=== PATIENT | female | born 2000 | race Caucasian/White ===

== ENCOUNTER 2022-01-20 23:44 | Inpatient (IN) ==
[2022-01-21] MEDS ORDERED: OXYTOCIN 30 UNITS/500 ML BAG IV PRN ×3 (02:38→11:53)
[2022-01-21] MEDS ORDERED: PROMETHAZINE HCL INJ 25 MG/ML 1 ML VIAL IM STA (02:38)
[2022-01-21] MEDS ORDERED: MoRPHine SULFATE 10 MG/ML CARP/VIAL IM PRN (02:46)
--- NOTE | 2022-01-21 02:51 | History & Physical Report ---
Date of Service January 21, 2022 Assessment & Plan (1) Supervision of normal intrauterine in primigravida: Plan: Admit to L&D for labor. I suspect patient is in early labor stages, given the noted thinning of cervix during her observation so far. However, her pain is so severe that she is in need of pain relief. I have offered her morphine/phenergan for therapeutic rest, as well as moving forward with epidural. She was so painful that she was unable to really make a decision about this during a contraction - however, she was then able to get up and ambulate down the hallway to a new room for admission. Abdomen is soft, FHT is reassuring - so I do not think this pain is related to a diagnosis of abruption - I think she is more likely feeling extreme pain with contractions and the bloody show is related to cervical change. She does not have the significant pain in between contractions. History of Present Illness Chief Complaint: contractions Primary Care Provider: NO PCP 21yo @ 40 2, presented with contractions every few minutes. +bloody show. No leaking fluid. + movement. Severe discomfort with contractions. Allergies Allergy/AdvReac Type Severity Reaction Status Date / Time amoxicillin Allergy hx from Verified 01/19/22 09:35 mother Home Medications Medication Instructions Recorded Confirmed Type prenat.vits,emma,psa-fdhf-ycqpy 1 tab PO DAILY 06/08/21 01/19/22 History Patient History Surgical History S/P wisdom tooth extraction Family History (Updated 06/08/21 @ 12:54 by Luci Hickman) Mother Hypothyroidism Family/Other Hypothyroidism Social History (Updated 06/08/21 @ 12:55 by Luci Hickman) Smoking Status: Never smoker Second Hand Exposure: No; Do You Dip or Chew Tobacco: No; Tobacco Cessation Education Requested by Patient: No Hx Alcohol Use: No Hx Substance Use: No Preferred Language: Setswana Communication Ability: Effective Chainstitch Hemmer Required: No Beliefs That Will Affect Care: None marital status: Single marital status details: Darin (22) [phone] Current Living Situation: Significant Other Current Living Situation Comment: FOB and two dogs current occupational status: employed 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 (Was 50/-3 on arrival) Constitutional: WD/WN, vitals as above Respiratory: normal respiratory effort, lungs clear to auscultation no respiratory distress Cardiovascular: Rate/Rhythm: regular rate and regular rhythm Gastrointestinal (Abdomen): Inspection/Auscultation: abdomen normal to inspection Percussion/Palpation: abdomen soft; abdomen nontender Gravid. No s/s chorio or abruption. Skin: no rashes, warm and dry Psychiatric: A+Ox3, euthymic affect Results & Data ([facility]) Vital Signs (Past 12 Hours) Vital Signs Temp Pulse Resp BP 01/21/22 00:11 36.6 C 18 01/20/22 23:59 78 115/76 Coding Level of Care Code None Diagnoses Supervision of normal intrauterine in primigravida Z34.00
[2022-01-21] MEDS: LACTATED RINGER'S 1,000 ML IV PRN ×2 (03:04→04:24)
[2022-01-21 03:25] LABS: Hematocrit (blood only) 35.5 % (37-47); Hemoglobin 11.7 g/dL (12.0-16.0); Mean Corpuscular Hemoglobin 30.5 pg (25-34); Mean Corpuscular Volume 92.4 fL (80-100); Mean Platelet Volume 10.6 fL (7.4-10.4); Platelet Count 192 K/uL (130-400); RDW Standard Deviation 43.8 fL (36.4-46.3); Red Blood Count 3.84 M/uL (4.2-5.4)
[2022-01-21] MEDS ORDERED: ePHEDrine sulfate 50 MG/ML AMP ONE (04:03)
[2022-01-21] MEDS ORDERED: fentaNYL citrate 100 MCG/2 ML VIAL ONE (04:03)
[2022-01-21] MEDS ORDERED: SODIUM CHLORIDE 0.9% INJ 10 ML VIAL ONE (04:03)
[2022-01-21] MEDS ORDERED: BUPIVACAINE 0.25% 30 ML VIAL ONE (04:03)
[2022-01-21] MEDS ORDERED: fentaNYL 2MCG/ML ROPIVACAINE 1.25MG/ML 100 ML BAG EPI ONE (04:04)
--- NOTE | 2022-01-21 04:11 | Anesthesiology Consultation ---
Date of Service January 21, 2022 Assessment & Plan (1) Encounter for pre-operative examination: Chart Review Chart Review: Patient NOT seen in Pre Admission Testing and Acceptable Risk for Labor Epidural History Height/Weight Height: 5 ft 6 in Weight: 68.039 kg Allergies Allergy/AdvReac Type Severity Reaction Status Date / Time amoxicillin Allergy hx from Verified 01/19/22 09:35 mother Medications Home Medications Medication Instructions Recorded Confirmed Last Taken prenat.vits,emma,ovp-fqnc-ybtfg 1 tab PO DAILY 06/08/21 01/21/22 01/20/22 08:00 Active Medications Generic Name Dose Route Start Last Admin Trade Name Freq PRN Reason Stop Dose Admin Lactated Ringer's 1,000 mls @ 125 mls/hr 01/21/22 02:38 01/21/22 03:04 Lr IV 01/23/22 02:37 999 mls/hr .Q8H PRN Administration L&D Protocol Protocol Morphine Sulfate 5 mg 01/21/22 02:46 01/21/22 02:54 Morphine Sulfate 10 Mg/Ml Carp/Vial IM 02/04/22 02:45 5 mg Q4H PRN Administration Pain Past Family History Family History Mother Hypothyroidism Family/Other Hypothyroidism Past Surgical History Surgical History S/P wisdom tooth extraction Social History Smoking Status: Never smoker Do You Dip or Chew Tobacco: No Hx Alcohol Use: No Hx Substance Use: No substance use type: does not use Physical Exam Vital Signs Last Vital Signs Temp 36.6 C 01/21/22 00:11 Pulse 78 01/20/22 23:59 Resp 18 01/21/22 00:11 BP 115/76 01/20/22 23:59 Testing Laboratory Results 01/21/22 03:15
[2022-01-21] MEDS ORDERED: ePHEDrine sulfate 50 MG/ML AMP IV PRN (05:16)
[2022-01-21] MEDS ORDERED: NALBUPHINE HCL INJ 10 MG/ML AMP IV PRN (05:16)
[2022-01-21] MEDS ORDERED: diphenhydrAMINE 50 MG/ML VIAL IV PRN (05:16)
[2022-01-21] MEDS ORDERED: fentaNYL 2MCG/ML ROPIVACAINE 1.25MG/ML 100 ML BAG EPI PRN (05:16)
[2022-01-21] MEDS ORDERED: ONDANSETRON INJ 2 MG/ML 2 ML VIAL IV PRN (05:16)
[2022-01-21] MEDS ORDERED: NALOXONE HCL 1 MG in SODIUM CHLORIDE 0.9% 1000ML 1,000 ML IV PRN (05:16)
[2022-01-21] MEDS ORDERED: NALOXONE HCL 0.4 MG/1 ML VIAL/CARP IV PRN (05:16)
--- NOTE | 2022-01-21 11:13 | Labor Progress Brief Note ---
Date of Service January 21, 2022 Subjective Has labored down for an hour. Feeling rectal pressure. Assessment & Plan (1) Normal labor: Plan: Will begin pushing. fetus category one. Anticipate . Admission and Anticipated Discharge Date Admission Date: January 21, 2022 Physical Exam Physical Exam: cx--c/c/+1-2 toco--q2-3 efm--145 with mod variability, accels present, no decels Results & Data ([facility]) Vital Signs (Past 12 Hours) Vital Signs Temp Pulse Resp BP Pulse Ox 01/21/22 11:08 37.4 C 20 01/21/22 11:05 82 97 01/21/22 11:00 79 97 01/21/22 10:55 81 97 01/21/22 10:50 82 98 01/21/22 10:45 96 H 117/71 98 01/21/22 10:40 80 97 01/21/22 10:35 79 97 01/21/22 10:30 80 18 97 01/21/22 10:25 80 97 01/21/22 10:20 80 97 01/21/22 10:15 102 H 162/95 H 96 01/21/22 10:10 112 H 96 01/21/22 10:05 98 H 97 01/21/22 10:00 99 H 18 96 01/21/22 09:55 99 H 97 01/21/22 09:50 93 H 96 01/21/22 09:45 119 H 96 01/21/22 09:40 78 96 01/21/22 09:35 82 96 01/21/22 09:30 72 18 96 01/21/22 09:25 74 96 01/21/22 09:20 72 96 01/21/22 09:15 80 92/55 L 96 01/21/22 09:10 70 96 01/21/22 09:05 69 96 01/21/22 09:00 65 18 96 01/21/22 08:55 74 96 01/21/22 08:50 76 96 01/21/22 08:46 87 96/54 L 01/21/22 08:45 82 96 01/21/22 08:40 78 95 01/21/22 08:35 83 96 01/21/22 08:30 93 H 18 96 01/21/22 08:25 83 96 01/21/22 08:20 86 96 01/21/22 08:16 78 118/68 01/21/22 08:15 76 96 01/21/22 08:10 91 H 96 01/21/22 08:05 88 96 01/21/22 08:00 90 18 96 01/21/22 07:55 70 96 01/21/22 07:50 72 95 01/21/22 07:46 72 116/68 01/21/22 07:45 71 96 01/21/22 07:40 81 96 01/21/22 07:35 102 H 97 01/21/22 07:30 81 20 97 01/21/22 07:25 77 99 01/21/22 07:20 78 96 01/21/22 07:15 74 96 01/21/22 07:10 37 C 76 18 96 01/21/22 07:05 76 96 01/21/22 07:00 67 18 109/58 L 95 01/21/22 06:55 68 95 01/21/22 06:50 81 96 01/21/22 06:45 65 95 01/21/22 06:44 65 105/56 L 01/21/22 06:40 66 95 01/21/22 06:35 67 95 01/21/22 06:30 64 104/59 L 95 01/21/22 06:25 65 96 01/21/22 06:20 65 96 01/21/22 06:16 64 111/62 01/21/22 06:15 65 96 01/21/22 06:10 67 96 01/21/22 06:05 67 96 01/21/22 06:00 36.8 C 76 20 110/73 96 01/21/22 05:55 77 96 01/21/22 05:50 84 97 01/21/22 05:45 70 113/61 96 01/21/22 05:40 71 96 01/21/22 05:35 70 96 01/21/22 05:30 69 112/57 L 97 01/21/22 05:25 76 97 01/21/22 05:20 80 97 01/21/22 05:15 109 H 97 01/21/22 05:10 81 111/63 98 01/21/22 05:08 77 113/58 L 01/21/22 05:07 67 98/56 L 01/21/22 05:05 69 108/57 L 99 01/21/22 05:03 72 110/55 L 01/21/22 05:01 68 109/55 L 01/21/22 05:00 70 100 01/21/22 04:59 76 117/60 91 01/21/22 04:57 82 106/55 L 01/21/22 04:55 72 100 01/21/22 04:54 86 106/60 01/21/22 04:53 72 100/51 L 01/21/22 04:51 92 H 110/52 L 90 01/21/22 04:50 91 H 100 01/21/22 04:49 84 119/58 L 01/21/22 04:46 100 H 119/69 01/21/22 04:45 92 H 100 01/21/22 04:44 77 116/72 01/21/22 04:42 97 H 90 01/21/22 04:40 84 99 01/21/22 04:35 86 100 01/21/22 04:30 91 H 75 L 01/21/22 04:27 91 H 92 01/21/22 04:25 79 100 01/21/22 04:20 102 H 100 01/21/22 04:18 88 127/76 01/21/22 04:15 107 H 100 01/21/22 00:11 36.6 C 18 01/20/22 23:59 78 115/76 Coding Level of Care Code None Diagnoses Normal labor O80; Z37.9
[2022-01-21] MEDS ORDERED: bisacodyL 10 MG SUPP PR PRN (11:53)
[2022-01-21] MEDS ORDERED: ACETAMINOPHEN 325 MG TAB PO PRN (11:53)
[2022-01-21] MEDS ORDERED: oxyCODONE/ACETAMINOPHEN 5mg/325mg TAB PO PRN (11:53)
[2022-01-21] MEDS ORDERED: HYDROCORTISONE ACETATE 25 MG SUPP PR PRN (11:53)
[2022-01-21] MEDS ORDERED: DIPHTHERIA/TETANUS/PERTUSSIS 0.5 ML SYR/VIAL IM ONE (11:53)
[2022-01-21] MEDS ORDERED: BENZOCAINE 20% AER SPR 82.5 GM CAN EXT PRN (11:53)
--- NOTE | 2022-01-21 11:59 | Delivery Summary ---
Vaginal Delivery Summary Date of Service January 21, 2022 Vaginal Delivery Summary and 1st Degree LAC Pre-operative Diagnosis: at 40 weeks normal labor Post-operative Diagnosis: same Procedure: epidural first degree and bilateral labial lacerations EBL: 350cc Anesthesia: epidural Procedure: Patient was admitted in early active labor. She was given an epidural and progressed to c/c/+1-2 after an hour of laboring down. The patient pushed for 15 min to deliver a viable female infant in kaila position. The nose and mouth were bulb suctioned on the perineum and the rest of the infant was then delivered without difficulty. There was a tight nuchal cord and an nuchal arm at delivery. The baby was vigorous. The nose and mouth were again bulb suctioned and the infant was placed in the maternal abdomen for drying and attention. Cord was clamped and cut at one minute of life. Cord blood and segment obtained. Placenta delivered spontaneous, intact with a three vessel cord. Cervix/sulci/rectum were intact. A first degree perineal laceration and bilateral labial lacerations were repaired in the normal standard fashion. Hemostasis obtained with dilute pitocin and fundal massage. Apgars were 8/9. Mother and baby doing well at the end of the delivery. [facility] Vaginal Delivery Charge Delivery Type Details: and 1st Degree LAC
--- NOTE | 2022-01-21 13:00 | Anesthesia Procedure Note ---
Date of Service January 21, 2022 Anesthesia Post Epidural Note Vital Signs Vital Signs: Temp Pulse Resp BP Pulse Ox 37.3 C 94 H 20 125/56 L 97 01/21/22 12:05 01/21/22 12:55 01/21/22 12:51 01/21/22 12:31 01/21/22 12:55 Notes Mental Status: alert / awake / arousable Nausea / Vomiting: adequately controlled Pain: adequately controlled Airway Patency, RR, SpO2: stable & adequate BP & HR: stable & adequate Hydration State: stable & adequate Neuraxial Anesthesia: was administered and sensory block is resolving Anesthetic Complications: no major complications apparent and Pt Satisfied with anesthetic care Epidural: Removed without complications and With tip intact
[2022-01-21] MEDS: IBUPROFEN 600 MG TAB PO PRN (21:08)
[2022-01-21] MEDS: DOCUSATE SODIUM 100 MG CAP PO SCH (21:09)
[2022-01-22 06:54] LABS: Hematocrit (blood only) 31.4 % (37-47); Hemoglobin 10.3 g/dL (12.0-16.0)
--- NOTE | 2022-01-22 07:58 | Obstetrical Progress Note ---
Date of Service January 22, 2022 Assessment & Plan (1) Vaginal delivery: Doing well. Routine care. Breast feeding. Day #:: 1 Subjective Ambulation: ambulating normally Voiding: no voiding problems Passing Gas:: No Diet Tolerance:: regular diet Lochia:: Small Feeding Type:: breast feeding Physical Exam Constitutional WD/WN, vitals as above Cardiovascular Extremities: no calf tenderness and no edema Gastrointestinal (Abdomen) soft, nt, nd, ff/nt at u Results & Data ([facility]) Vital Signs (Past 12 Hours) Vital Signs Temp Pulse Resp BP Pulse Ox 01/22/22 05:35 37.2 C 70 20 110/70 98 01/22/22 01:15 37.1 C 69 18 111/69 99
[2022-01-22] MEDS: PRENATAL VITAMIN 1 TAB PO SCH (07:59)
[2022-01-22] MEDS: DOCUSATE SODIUM 100 MG CAP PO SCH ×2 (07:59→20:35)
[2022-01-22] MEDS: IBUPROFEN 600 MG TAB PO PRN ×3 (08:00→23:48)
[2022-01-22] MEDS ORDERED: bisacodyL 5 MG TABEC PO SCH (20:00)
--- NOTE | 2022-01-23 08:56 | Obstetrical Progress Note ---
Date of Service January 23, 2022 Assessment & Plan (1) Encounter for care and examination after delivery: Day 2 s/p . Doing well. Stable for discharge Subjective Ambulation: ambulating normally Voiding: no voiding problems Passing Gas:: Yes Diet Tolerance:: regular diet Lochia:: Moderate Feeding Type:: breast feeding Physical Exam Constitutional WD/WN, vitals as above Respiratory normal respiratory effort; no respiratory distress and no labored breathing Gastrointestinal (Abdomen) Inspection/Auscultation: abdomen normal to inspection; abdomen not distended Percussion/Palpation: abdomen soft; abdomen nontender, no guarding and abdomen not rigid Genitourinary OB Exam Abdomen: + fundal height Fundus: + firm and + relation to umbilicus (Below); not tender or not boggy Results & Data ([facility]) Vital Signs (Past 12 Hours) Vital Signs Temp Pulse Resp BP Pulse Ox 01/23/22 07:45 36.8 C 73 16 113/74 100 01/23/22 00:50 36.9 C 88 18 127/81
[2022-01-23] MEDS: PRENATAL VITAMIN 1 TAB PO SCH (08:57)
[2022-01-23] MEDS: IBUPROFEN 600 MG TAB PO PRN (10:09)
[2022-01-23] MEDS: DOCUSATE SODIUM 100 MG CAP PO SCH (10:16)
== END 2022-01-23 15:01 | disposition home or self-care (01) | DRG 807 ==
LOC: OPB 23:44 → 4S1 23:47 → 4E2 01-21 15:06

== ENCOUNTER 2025-05-01 05:23 | Inpatient (IN) ==
[2025-05-01] MEDS ORDERED: CALCIUM CARBONATE 500 MG CHEWABLE TAB PO PRN (07:56)
[2025-05-01] MEDS ORDERED: ACETAMINOPHEN 325 MG TAB PO PRN (07:56)
[2025-05-01] MEDS ORDERED: LIDOCAINE 1% LOCAL 20 ML VIAL INFIL PRN (07:56)
--- NOTE | 2025-05-01 08:01 | History & Physical Report ---
Date of Service May 01, 2025 Assessment & Plan (1) Normal labor: Plan admit for labor, epidural. after comfortable then arom. fetus category 1, anticipate . History of Present Illness Chief Complaint: contractions Primary Care Provider: DEANN Bran Patient is a 25yowf with iup at at 39 5/7 weeks who presents to labor and delivery with painful contractions. no lof/vb. +fm. Made cervical change attendant observation. 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 *FOB Negative OB Labs: Blood Type B Negative 12/13/24 Antibody Screen NEGATIVE 02/13/25 Hgb 12.4 g/dl (12.0-16.0) 02/13/25 Hct 37.3 % (37.0-47.0) 02/13/25 MCV 91.9 fL (80.0-100.0) 12/13/24 Plt Count 202 K/uL (130-400) 12/13/24 VZV IgG Antibody 232.20 Index (>=165.00) 04/17/23 Rubella IgG Antibody Immune (Immune) 12/13/24 RPR Nonreactive (Nonreactive) 06/15/21 Treponema pallidum Ab Negative (Negative) 02/13/25 Hep Bs Antigen Negative (Negative) 12/17/24 Hepatitis C Antibody Negative (Negative) 12/13/24 HIV 1&2 Ab/P24 Ag 4thGn Negative (Negative) 12/13/24 Glucose 1 Hr 50 gm 99 mg/dl (70-130) 02/13/25 OB Optional Labs: Chlamydia trachomatis RNA Not Detected (NotDetected) 11/18/24 Neisseria gonorrhoeae RNA Not Detected (NotDetected) 11/18/24 Thyroid Stimulating Hormone (TSH) 2.439 uIu/ml (0.300-4.500) 08/26/24 Labs Reviewed: Carrier of CF in prior , HK Horizon 14 negative except CF, FOB neg low risk panorama--akh Allergies Allergy/AdvReac Type Severity Reaction Status Date / Time amoxicillin Allergy hx from Verified 04/29/25 08:14 mother Home Medications Medication Instructions Recorded Confirmed Type vit no.95-ferrous 1 tab PO DAILY 05/01/25 05/01/25 History fumarate 28 mg-folic acid 800 mcg tablet () Patient History Medical History No active medical problems Surgical History S/P wisdom tooth extraction Family History Mother Hypothyroidism Family/Other Hypothyroidism Denies family history of Ovarian cancer Prostate cancer Myocardial infarction Breast cancer Colorectal cancer Social History Smoking Status: Never smoker Second Hand Exposure: No; Do You Dip or Chew Tobacco: No; Hx Alcohol Use: No Hx Substance Use: No Preferred Language: Persian Communication Ability: Effective Visual Impairment: No Limitations Hearing Ability: Normal Podiatric Foot And Ankle Specialist Required: No Beliefs That Will Affect Care: None marital status: marital status details: Darin (22) [phone] Current Living Situation: Spouse and Family current occupational status: employed 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 do You have: 1 Other Information That Helps Us Care for You: No Feels Safe at Home: Yes Safety Concerns: Feels Safe At This Time Childhood Exposure to Second-Hand Smoke: No Diet: regular caffeine: No during the past year weight has: decreased > 10 lbs Dental Care, Regularly: Yes Physical Activity Frequency: Daily Seatbelt Use: always Sunscreen Use: Yes Assistive Devices: None Physical Exam Constitutional: WD/WN, vitals as above Gastrointestinal (Abdomen): soft, gravid, nt Psychiatric: A+Ox3, euthymic affect Genitourinary: cx--/80/-2 toco--q4-5 efm--150s with mod variabilty, accels present, no decels. Results & Data Vital Signs (Past 12 Hours) Vital Signs Temp Pulse Resp BP 05/01/25 07:23 36.6 C 85 20 111/69 05/01/25 05:43 36.6 C 87 18 107/72 05/01/25 05:42 87 107/72 Coding Level of Care Code None Diagnoses Normal labor O80; Z37.9
[2025-05-01] MEDS: LACTATED RINGER'S 1,000 ML IV PRN (08:16)
[2025-05-01] MEDS ORDERED: ONDANSETRON INJ 2 MG/ML 2 ML VIAL IV PRN (08:29)
[2025-05-01] MEDS ORDERED: LIDOCAINE 2% MPF LOCAL 5 ML VIAL EPI PRN (08:29)
[2025-05-01] MEDS ORDERED: diphenhydrAMINE 50 MG/ML VIAL IV PRN (08:29)
[2025-05-01] MEDS ORDERED: fentANYL 2 MCG/ML BUPIVacaine 0.125%-NSS 100ML BAG EPI PRN (08:29)
[2025-05-01] MEDS ORDERED: ROPIVACAINE 0.5% PF 5 MG/ML 20 ML VIAL EPI PRN (08:29)
[2025-05-01] MEDS ORDERED: NALOXONE HCL 1 MG in SODIUM CHLORIDE 0.9% 1,000 ML IV PRN (08:29)
[2025-05-01] MEDS ORDERED: NALOXONE HCL 0.4 MG/1 ML VIAL/CARP IV PRN (08:29)
[2025-05-01] MEDS ORDERED: NALBUPHINE HCL INJ 10 MG/ML AMP IV PRN (08:29)
[2025-05-01] MEDS ORDERED: SODIUM CHLORIDE 0.9% PF INJ 10 ML VIAL EPI STA (08:29)
[2025-05-01] MEDS ORDERED: BUPIVACAINE 0.25% PF 30 ML VIAL EPI PRN (08:29)
[2025-05-01] MEDS ORDERED: SODIUM CHLORIDE 0.9% PF INJ 10 ML VIAL EPI PRN (08:29)
--- NOTE | 2025-05-01 08:33 | Anesthesiology Consultation ---
Date of Service May 01, 2025 Assessment & Plan (1) Encounter for pre-operative examination: Chart Review Chart Review: Patient NOT seen in Pre Admission Testing and Acceptable Risk for Labor Epidural Consults Requested none History Height/Weight Height: 5 ft 6 in Weight: 69.4 kg Allergies Allergy/AdvReac Type Severity Reaction Status Date / Time amoxicillin Allergy hx from Verified 04/29/25 08:14 mother Medications Home Medications Medication Instructions Recorded Confirmed Last Taken vit no.95-ferrous 1 tab PO DAILY 05/01/25 05/01/25 04/30/25 fumarate 28 mg-folic acid 800 mcg tablet () Active Medications Generic Name Dose Route Start Last Admin Trade Name Freq PRN Reason Stop Dose Admin Lactated Ringer's 1,000 mls @ 125 mls/hr 05/01/25 07:56 05/01/25 08:16 Lr IV 05/03/25 07:55 999 mls/hr .Q8H PRN Administration L&D Protocol Protocol Past Medical History Medical History (Updated 05/01/25 @ 08:33 by Roshan Zepeda MD) Encounter for pre-operative examination No active medical problems Exercise / Class Metabolic Activity II 4-5 Yardwork/Stairs/Walk up hill Past Family History Family History Mother Hypothyroidism Family/Other Hypothyroidism Denies family history of Ovarian cancer Prostate cancer Myocardial infarction Breast cancer Colorectal cancer Past Surgical History Surgical History S/P wisdom tooth extraction Social History Smoking Status: Never smoker Do You Dip or Chew Tobacco: No Hx Alcohol Use: No Hx Substance Use: No substance use type: does not use Physical Exam Vital Signs Last Vital Signs Temp 36.6 C 05/01/25 07:23 Pulse 75 05/01/25 09:24 Resp 20 05/01/25 07:23 BP 105/56 L 05/01/25 09:24 Pulse Ox 99 05/01/25 09:19 Testing Laboratory Results 05/01/25 08:32
[2025-05-01] MEDS ORDERED: LIDOCAINE 2%/EPINEPHRINE 1:200,000 20 ML PF ONE (08:36)
[2025-05-01] MEDS ORDERED: BUPIVACAINE 0.25% PF 30 ML VIAL ONE (08:36)
[2025-05-01 09:04] LABS: Hematocrit (blood only) 36.2 % (37.0-47.0); Hemoglobin 11.8 g/dl (12.0-16.0); Mean Corpuscular Hemoglobin 28.8 pg (25.0-34.0); Mean Corpuscular Volume 88.3 fL (80.0-100.0); Platelet Count 196 K/uL (130-400); RDW Standard Deviation 42.7 fL (36.4-46.3); Red Blood Count 4.10 M/uL (4.20-5.40); White Blood Count 11.79 K/ul (4.8-10.8)
[2025-05-01] MEDS: fentANYL 2 MCG/ML BUPIVacaine 0.125%-NSS 100ML BAG ONE (09:27)
[2025-05-01] MEDS: BUPIVACAINE 0.25% PF 30 ML VIAL EPI STA (09:32)
[2025-05-01] MEDS: LIDOCAINE 2%/EPINEPHRINE 1:200,000 20 ML PF EPI STA (09:33)
[2025-05-01] MEDS: SODIUM CHLORIDE 0.9% PF INJ 10 ML VIAL ONE (09:34)
--- NOTE | 2025-05-01 10:30 | Labor Progress Brief Note ---
Date of Service May 01, 2025 Subjective comfortable with epidural Assessment & Plan (1) Normal labor: Plan anticipate , fetus category one Admission and Anticipated Discharge Date Admission Date: May 01, 2025 Physical Exam Physical Exam: cx--8/100/-1 toco--q2-4min efm--150s with mod varaibility, accels present, no decels arom--minimal clear Results & Data Vital Signs (Past 12 Hours) Vital Signs Temp Pulse Resp BP Pulse Ox 05/01/25 10:24 80 99 05/01/25 10:21 74 99/57 L 05/01/25 10:19 83 99 05/01/25 10:14 71 98 05/01/25 10:09 76 98 05/01/25 10:05 77 94/56 L 05/01/25 10:04 74 98 05/01/25 10:00 88 99/65 L 05/01/25 09:59 90 99 05/01/25 09:54 79 95/53 L 98 05/01/25 09:49 77 97 05/01/25 09:48 77 95/52 L 05/01/25 09:46 77 97/56 L 05/01/25 09:44 74 16 99/55 L 98 05/01/25 09:42 71 99/60 L 05/01/25 09:40 68 98/57 L 05/01/25 09:39 73 99 05/01/25 09:38 72 100/59 L 05/01/25 09:36 71 99/54 L 05/01/25 09:34 98 05/01/25 09:34 76 05/01/25 09:34 74 98/57 L 05/01/25 09:32 75 20 98/53 L 05/01/25 09:30 81 102/60 05/01/25 09:29 80 99 05/01/25 09:28 76 102/56 L 05/01/25 09:26 70 112/61 05/01/25 09:24 100 05/01/25 09:24 81 05/01/25 09:24 75 105/56 L 05/01/25 09:22 88 113/62 05/01/25 09:20 85 113/59 L 05/01/25 09:19 86 99 05/01/25 09:14 99 H 99 05/01/25 09:10 84 121/64 05/01/25 09:09 92 H 100 05/01/25 09:08 237 H 73 L 05/01/25 07:23 36.6 C 85 20 111/69 05/01/25 05:43 36.6 C 87 18 107/72 05/01/25 05:42 87 107/72 Coding Level of Care Code None Diagnoses Normal labor O80; Z37.9
--- NOTE | 2025-05-01 11:40 | Labor Progress Brief Note ---
Date of Service May 01, 2025 Subjective comfortable Assessment & Plan (1) Normal labor: Plan continue current management. fetus category one. Anticipate . Admission and Anticipated Discharge Date Admission Date: May 01, 2025 Physical Exam Physical Exam: cx--9/100/-1-0 toco--q2-4 efm--140s wtih mod variability, accels present, no decels Results & Data Vital Signs (Past 12 Hours) Vital Signs Temp Pulse Resp BP Pulse Ox 05/01/25 11:35 72 95/58 L 05/01/25 11:34 71 97 05/01/25 11:29 65 98 05/01/25 11:24 67 99 05/01/25 11:20 69 104/65 05/01/25 11:19 67 98 05/01/25 11:14 69 98 05/01/25 11:09 82 98 05/01/25 11:05 70 107/60 05/01/25 11:04 85 99 05/01/25 10:59 79 99 05/01/25 10:54 75 99 05/01/25 10:51 82 98/55 L 05/01/25 10:49 80 99 05/01/25 10:44 71 100 05/01/25 10:39 69 100 05/01/25 10:35 36.9 C 68 20 108/68 05/01/25 10:34 70 99 05/01/25 10:29 90 100 05/01/25 10:24 80 99 05/01/25 10:21 74 99/57 L 05/01/25 10:19 83 99 05/01/25 10:14 71 98 05/01/25 10:09 76 98 05/01/25 10:05 77 94/56 L 05/01/25 10:04 74 98 05/01/25 10:00 88 99/65 L 05/01/25 09:59 90 99 05/01/25 09:54 79 95/53 L 98 05/01/25 09:49 77 97 05/01/25 09:48 77 95/52 L 05/01/25 09:46 77 97/56 L 05/01/25 09:44 74 16 99/55 L 98 05/01/25 09:42 71 99/60 L 05/01/25 09:40 68 98/57 L 05/01/25 09:39 73 99 05/01/25 09:38 72 100/59 L 05/01/25 09:36 71 99/54 L 05/01/25 09:34 98 05/01/25 09:34 76 05/01/25 09:34 74 98/57 L 05/01/25 09:32 75 20 98/53 L 05/01/25 09:30 81 102/60 05/01/25 09:29 80 99 05/01/25 09:28 76 102/56 L 05/01/25 09:26 70 112/61 05/01/25 09:24 100 05/01/25 09:24 81 05/01/25 09:24 75 105/56 L 05/01/25 09:22 88 113/62 05/01/25 09:20 85 113/59 L 05/01/25 09:19 86 99 05/01/25 09:14 99 H 99 05/01/25 09:10 84 121/64 05/01/25 09:09 92 H 100 05/01/25 09:08 237 H 73 L 05/01/25 07:23 36.6 C 85 20 111/69 05/01/25 05:43 36.6 C 87 18 107/72 05/01/25 05:42 87 107/72 Coding Level of Care Code None Diagnoses Normal labor O80; Z37.9
[2025-05-01] MEDS: OXYTOCIN 30 UNITS/NSS 30 UNITS/500 ML BAG IV PRN (12:53)
--- NOTE | 2025-05-01 13:10 | Delivery Summary ---
Vaginal Delivery Summary Date of Service May 01, 2025 Vaginal Delivery Summary and 1st Degree LAC (bilateral labial lacs) Pre-operative Diagnosis: at 39 5/7 active labor Post-operative Diagnosis: same Procedure: epidural arom bilateral labial lac and small first degree lac and repair qBL: 157cc Anesthesia: epidual Procedure: Patient presented to labor and delivery in active labor. Admitted, epidural, arom for clear fluid. Progressed to c/c/+1. The patient pushed for 10 minutess to deliver a viable femal infant in zofia position. The nose and mouth were bulb suctioned on the perineum and the rest of the infant was then delivered without difficulty. The baby was vigorous. The nose and mouth were again bulb suctioned and the infant was placed in the maternal abdomen for drying and attention. Cord was clamped and cut at 1.5 minutes of life. Cord blood obtained. Placenta delivered spontaneous, intact with a three vessel cord. Cervix/sulci/rectum were intact. A small first degree perineal laceration and bilateral labial were repaired in the normal standard fashion. Hemostasis obtained with dilute pitocin and fundal massage. Apgars were 8/9. Mother and baby doing well at the end of the delivery. [facility] Vaginal Delivery Charge Delivery Type Details: and 1st Degree LAC (bilateral labial lacs)
[2025-05-01] MEDS ORDERED: HYDROCORTISONE ACETATE 25 MG SUPP PR PRN (13:22)
[2025-05-01] MEDS ORDERED: BENZOCAINE 20% SPRY 85 APPLN/85 GM CAN EXT PRN (13:22)
[2025-05-01] MEDS ORDERED: OXYTOCIN 30 UNITS/NSS 30 UNITS/500 ML BAG IV PRN (13:22)
[2025-05-01] MEDS ORDERED: DIPHTHER/TETAN/PERTUS Vaccine (Tdap, Adol/Adult) 0.5mL IM ONE (13:22)
--- NOTE | 2025-05-01 14:50 | Anesthesia Procedure Note ---
Date of Service May 01, 2025 Anesthesia Post Epidural Note Vital Signs Vital Signs: Temp Pulse Resp BP Pulse Ox 36.8 C 78 20 109/58 L 97 05/01/25 13:20 05/01/25 14:35 05/01/25 14:05 05/01/25 14:35 05/01/25 13:04 Pain Intensity Abdomen: Pain Intensity: 0 Notes Mental Status: alert / awake / arousable and participated in evaluation Patient Amnestic to Procedure: No Nausea / Vomiting: adequately controlled Pain: adequately controlled Airway Patency, RR, SpO2: stable & adequate BP & HR: stable & adequate Hydration State: stable & adequate Neuraxial Anesthesia: was administered and sensory block is resolving Anesthetic Complications: no major complications apparent and Pt Satisfied with anesthetic care Epidural: Removed without complications and With tip intact
[2025-05-01] MEDS: IBUPROFEN 600 MG TAB PO PRN (16:49)
[2025-05-01] MEDS: ACETAMINOPHEN 325 MG TAB PO PRN (16:50)
[2025-05-01] MEDS: DOCUSATE SODIUM 100 MG CAP PO SCH (20:25)
[2025-05-01 21:00] VITALS: O2SAT 97
[2025-05-02 03:46] VITALS: RESP 16
--- NOTE | 2025-05-02 06:14 | Obstetrical Progress Note ---
Date of Service May 02, 2025 Assessment & Plan (1) care and examination: Plan: Patient is PP 1 day. Patient is currently stable. Patient desired to go home today. Will discharge today. Admission and Anticipated Discharge Date Admission Date: May 01, 2025 Supervising Physician Co-Signing Physician Notes Resident Physician Supervision Note: I interviewed and examined the patient. Discussed with Dr. Hui and agree with findings and plan as documented in the note. Any exceptions or clarifications are listed here: Doing well. Desires d/c today. Discussed medications for her uterine cramping with her breast feeding. Instructions given. f/u 6 weeks. Documented By: Jessi Cuello MD, FACOG Subjective 25 yo post- day 1 s/p [] Ambulation: ambulating normally Voiding: no voiding problems Passing Gas:: Yes Diet Tolerance:: regular diet Feeding Type:: breast feeding Current Pain Level:6/10, improving. Pain is from breast feeding and cramping. Resting comfortably this AM in NAD. Denies fevers/chills, PACKER, CP/palpitations, SOB/cough/wheeze, N/V/D, LE pain, breast pain/dschrg, UTI Sx. Review of Systems Review of Systems: as per subjective HPI Physical Exam Constitutional: WD/WN, vitals as above Respiratory: normal respiratory effort, lungs clear to auscultation Cardiovascular: RRR, no murmur, no edema Extremities: no calf tenderness and no edema Gastrointestinal (Abdomen): Percussion/Palpation: abdomen soft; abdomen nontender Skin: no rashes, warm and dry Genitourinary: Uterus @ level of umbilicus Results & Data Vital Signs (Past 12 Hours) Vital Signs Temp Pulse Resp BP Pulse Ox O2 Del Method 05/02/25 03:28 36.5 C 67 16 100/66 97 Room Air 05/01/25 22:58 36.7 C 74 18 106/72 97 Room Air 05/01/25 20:25 36.5 C 88 18 104/67 97 Room Air Laboratory Results 05/01/25 05/01/25 Range/Units 14:21 08:32 WBC 11.79 H (4.8-10.8) K/ul RBC 4.10 L (4.20-5.40) M/uL Hgb 11.8 L (12.0-16.0) g/dl Hct 36.2 L (37.0-47.0) % MCV 88.3 (80.0-100.0) fL MCH 28.8 (25.0-34.0) pg MCHC 32.6 (32.0-36.0) g/dL RDW Std Deviation 42.7 (36.4-46.3) fL RDW Coeff of Sharifa 13.2 (11.5-14.5) % Plt Count 196 (130-400) K/uL MPV 10.9 (9.4-12.4) fL Treponema pallidum Ab Negative (Negative) Blood Type B Negative Antibody Screen NEGATIVE Screen Negative (Negative)
[2025-05-02 08:20] VITALS: TEMP 98.1
[2025-05-02] MEDS: PRENATAL VITAMIN 1 TAB PO SCH (08:27)
[2025-05-02 10:31] LABS: Hematocrit (blood only) 34.9 % (37.0-47.0); Hemoglobin 11.3 g/dl (12.0-16.0)
[2025-05-02 13:20] VITALS: BP 113/80; PULSE 68
== END 2025-05-02 14:35 | disposition home or self-care (01) | DRG 807 ==
LOC: OPB 05:23 → 4S1 05:26 → 4E2 16:53